=== PATIENT | female | born 1945 | race Caucasian/White ===

== ENCOUNTER → 2023-12-03 06:49 | Outpatient (REF) | payer MEDICARE, OTHER, SELFPAY ==
[2023-12-03 09:27] LABS: Urine Albumin Negative (Neg - Trace); Urine Bilirubin Negative (Negative); Urine Character Clear (Clear); Urine Color Yellow; Urine Glucose Negative (Negative); Urine Ketone Negative (Negative); Urine Leukocyte Trace (Negative); Urine Nitrite Negative (Negative); Urine Occult Blood Negative (Negative); Urine Urobilinogen Negative (Neg - 1+)
[2023-12-03 09:33] LABS: % Basophils 0.7 % (0-2); % Eosinophils 4.4 % (0-6); % Immature Granulocytes 0.4 % (0-0.5); % Lymphocytes 38.4 % (20.5-51.1); % Monocytes 7.9 % (1.7-9.3); % Neutrophils 48.2 % (42.2-75.2); Absolute Eosinophils 0.2 10^3/uL (0-0.7); Absolute Lymphocytes 2.1 10^3/uL (1.2-3.4); Absolute Monocytes 0.4 10^3/uL (0.1-0.6); Absolute Neutrophils 2.6 10^3/uL (1.4-6.5); Hematocrit 40.8 % (37.0-47.0); Mean Corp Hgb Conc. 34.3 g/dL (33.0-37.0); Mean Corpuscular Hgb 31.7 pg (27.0-31.0); Mean Corpuscular Volume 92.5 fL (81.0-99.0); Mean Platelet Volume 11.5 fL (7.4-10.4); Nucleated Red Blood Cells % 0 %; Platelet Count 165 10^3/uL (130-400); Red Blood Cell Count 4.41 10^6/uL (4.20-5.40); Red Cell Dist. Width 13.6 % (11.5-14.5); White Blood Cell Count 5.4 10^3/uL (4.8-10.8)
[2023-12-03 09:35] LABS: ALT (SGPT) 26 U/L (0-35); AST (SGOT) 27 U/L (14-36); Albumin 4.3 g/dl (3.5-5.0); Alkaline Phosphatase 48 U/L (38-126); Blood Urea Nitrogen 31 mg/dl (7-17); Carbon Dioxide 28 mmol/L (22-30); Chloride 105 mmol/L (98-107); Glucose 90 mg/dl (70-99); HDL Cholesterol 53 mg/dl; LDL Cholesterol, Calculated 68 mg/dl; Potassium 4.3 mmol/L (3.5-5.1); Sodium 140 mmol/L (135-145); Total Bilirubin 0.5 mg/dl (0.2-1.3); Total Cholesterol 161 mg/dl (50-199); Total Protein 6.5 g/dl (6.3-8.2); Triglyceride 203 mg/dl (10-149); Very Low Density Lipoprotein 40 mg/dl (0-30); eGFR > 60.00
[2023-12-03 10:04] LABS: TSH Reflex To Free T4 4.27 uIU/ml (0.47-4.68)
[2023-12-03 10:36] LABS: Urine Bacteria Few (Negative); Urine Red Blood Cell 0-2 /HPF (0-2)
[2023-12-03 10:39] LABS: Vitamin D, 25-OH*** 43.4 ng/mL (30-80)
== END ==
LOC: HWLAB 06:49
PROVIDERS: ATTENDING PHYSICIAN Nurse Practitioner Adult Health
DX: I10 Essential (primary) hypertension (principal); F41.9 Anxiety disorder, unspecified; E78.2 Mixed hyperlipidemia; E03.9 Hypothyroidism, unspecified; Z87.39 Personal history of other diseases of the musculoskeletal system and connective tissue; M85.9 Disorder of bone density and structure, unspecified
CPT/HCPCS: 36415; 80053; 80061; 81003; 81015; 82306; 84443; 85025

== ENCOUNTER → 2023-12-25 07:34 | Outpatient (REF) | payer MEDICARE, OTHER, SELFPAY | LOC: HWRAD 07:34 | PROVIDERS: ATTENDING PHYSICIAN Nurse Practitioner Adult Health | DX: Z78.0 Asymptomatic menopausal state (principal); Z12.31 Encounter for screening mammogram for malignant neoplasm of breast | CPT/HCPCS: 77063; 77067; 77080 ==

== ENCOUNTER → 2024-06-13 06:43 | Outpatient (REF) | payer MEDICARE, OTHER, SELFPAY ==
[2024-06-13 09:49] LABS: ALT (SGPT) 29 U/L (0-35); AST (SGOT) 33 U/L (14-36); Albumin 4.8 g/dl (3.5-5.0); Alkaline Phosphatase 53 U/L (38-126); Blood Urea Nitrogen 18 mg/dl (7-17); Calcium 9.9 mg/dl (8.4-10.2); Carbon Dioxide 27 mmol/L (22-30); Chloride 101 mmol/L (98-107); Glucose 96 mg/dl (70-99); HDL Cholesterol 52 mg/dl; LDL Cholesterol, Calculated 59 mg/dl; Sodium 138 mmol/L (135-145); Total Bilirubin 0.7 mg/dl (0.2-1.3); Total Cholesterol 149 mg/dl (50-199); Total Protein 6.9 g/dl (6.3-8.2); Triglyceride 191 mg/dl (10-149); Very Low Density Lipoprotein 38 mg/dl (0-30); eGFR > 60.00
[2024-06-13 10:20] LABS: TSH Reflex To Free T4 4.03 uIU/ml (0.47-4.68)
== END ==
LOC: HWLAB 06:43
PROVIDERS: ATTENDING PHYSICIAN Nurse Practitioner Adult Health
DX: E03.9 Hypothyroidism, unspecified (principal); E78.2 Mixed hyperlipidemia
CPT/HCPCS: 36415; 80053; 80061; 84443

== ENCOUNTER → 2024-06-27 08:58 | Outpatient (REF) | payer MEDICARE, OTHER, SELFPAY | LOC: HWRCS 08:58 | PROVIDERS: ATTENDING PHYSICIAN Nurse Practitioner Adult Health | DX: I10 Essential (primary) hypertension (principal); I51.7 Cardiomegaly | CPT/HCPCS: 93306 ==

== ENCOUNTER → 2024-12-18 07:01 | Outpatient (REF) | payer MEDICARE, OTHER, SELFPAY ==
[2024-12-18 08:47] LABS: Hematocrit 41.4 % (37.0-47.0); Hemoglobin 13.6 g/dL (12.0-16.0); Mean Corp Hgb Conc. 32.9 g/dL (33.0-37.0); Mean Corpuscular Volume 94.1 fL (81.0-99.0); Nucleated Red Blood Cells % 0 %; Platelet Count 168 10^3/uL (130-400); Red Cell Dist. Width 13.6 % (11.5-14.5)
[2024-12-18 08:56] LABS: ALT (SGPT) 23 U/L (0-35); AST (SGOT) 23 U/L (14-36); Albumin 4.6 g/dl (3.5-5.0); Alkaline Phosphatase 39 U/L (38-126); Blood Urea Nitrogen 27 mg/dl (7-17); Calcium 9.8 mg/dl (8.4-10.2); Carbon Dioxide 26 mmol/L (22-30); Chloride 106 mmol/L (98-107); Glucose 96 mg/dl (70-99); HDL Cholesterol 50 mg/dl; LDL Cholesterol, Calculated 73 mg/dl; Potassium 4.3 mmol/L (3.5-5.1); Sodium 141 mmol/L (135-145); Total Protein 6.8 g/dl (6.3-8.2); Very Low Density Lipoprotein 40 mg/dl (0-30); eGFR > 60.00
[2024-12-18 09:50] LABS: Urine Character Clear (Clear)
[2024-12-18 11:29] LABS: Urine Red Blood Cell 0-2 /HPF (0-2)
[2024-12-18 12:00] LABS: Vitamin D, 25-OH*** 34.6 ng/mL (30-80)
== END ==
LOC: HWLAB 07:01
PROVIDERS: ATTENDING PHYSICIAN Nurse Practitioner Adult Health
DX: I10 Essential (primary) hypertension (principal); F41.9 Anxiety disorder, unspecified; E78.2 Mixed hyperlipidemia; E03.9 Hypothyroidism, unspecified; Z87.39 Personal history of other diseases of the musculoskeletal system and connective tissue
CPT/HCPCS: 36415; 80053; 80061; 81003; 81015; 82306; 84443; 85025

== ENCOUNTER → 2024-12-25 07:28 | Outpatient (REF) | payer MEDICARE, OTHER, SELFPAY | LOC: HWWDC 07:28 | PROVIDERS: ATTENDING PHYSICIAN Nurse Practitioner Adult Health | DX: Z12.31 Encounter for screening mammogram for malignant neoplasm of breast (principal) | CPT/HCPCS: 77063; 77067 ==

== ENCOUNTER → 2025-01-05 12:07 | Outpatient (REF) | payer MEDICARE, OTHER, SELFPAY ==
[2025-01-05 17:20] LABS: Microalb - Urine Creatinine 48.200 mg/dl
[2025-01-05 17:28] LABS: Microalbumin, Random Urine < 0.6 mg/dl (0.6-1.7)
== END ==
LOC: HWLAB 12:07
PROVIDERS: ATTENDING PHYSICIAN Nurse Practitioner Adult Health
DX: R80.9 Proteinuria, unspecified (principal)
CPT/HCPCS: 82043; 82570